=== PATIENT | female | born 1930 | race Caucasian/White ===

== ENCOUNTER 2018-01-09 09:28 | Inpatient (IN) ==
--- NOTE | 2018-01-09 09:40 | Emergency Department Note ---
Disposition Clinical Impression: Knee arthropathy UTI (urinary tract infection) Qualifiers: Urinary tract infection type: acute cystitis Hematuria presence: with hematuria Qualified Code(s): N30.01 - Acute cystitis with hematuria Disposition: Admitted As Inpatient Condition: Fair Time of Disposition: 12:10 General Adult HPI - General Stated complaint: fall Time Seen by Provider: 01/09/18 09:37 Nursing Notes Reviewed: Yes Vital Signs Reviewed: Yes - History of Present Illness HPI Narrative: Patient presents today with CC of: fall Patient describes issue began around 3 PM yesterday when she fell down because her walker got caught. She fell forward hitting her knee and has had pain since that time as well as slight tenderness extends up the leg towards the hip. She has not been able to bear weight. Family lifted her up so that she could sleep in a chair but she has not been able to bear weight very well and she normally bears weight with a walker. She recently has started having some burning with urination and she has a history of urinary tract infections. Pain is in the left knee it Sharp worse with movement better with rest patient denies any nausea or vomiting. She has been eating normally she had no loss of consciousness that she went down she bumped her left cheek. She is not having any pain denies any weakness or paresthesias. She is not on any blood thinners has no vision changes or tenderness of the face or head patient denies chest pain shortness of breath or abdominal pain. Patient states she took her blood pressure medicine shortly prior to coming here. She denies any headache. Was noted that her blood pressure was high on arrival. - Related Data Home Medications Medication Instructions Recorded Confirmed Carvedilol [Coreg] 6.25 mg PO BID 12/21/16 01/09/18 Isosorbide MONOnitrate (24 HR) 30 mg PO DAILY 12/21/16 01/09/18 [Imdur] Furosemide [Lasix] 20 mg PO DAILY 01/09/18 01/09/18 Allergies Allergy/AdvReac Type Severity Reaction Status Date / Time Sulfa (Sulfonamide Allergy Rash Verified 05/28/16 15:13 Antibiotics) Penicillins AdvReac Numbness Verified 05/28/16 15:13 All systems ED: reviewed and negative except as stated. Review of Systems: As Per HPI Past Medical History - Past Medical History Medical history: Reports: CHF, hypertension, myocardial infarction, other Psychiatric history: Reports: no psych history PATIENT CARRIER history: Reports: no PATIENT CARRIER history - Social History Smoking Status: Former smoker Smokeless Tobacco Status: No Alcohol use: Reports: none Drug use: Reports: none Physical Exam ROS: At least 10 systems reviewed with patient or surrogate during physical exam and are otherwise negative. I have reviewed initial and available nurse's notes for the patient. The patient 's medications, allergies, and medical history was reviewed. Family, Social & Surg histories were reviewed and are not relevant except as noted above in the history of present illness, or below in the respective specific section. I have reviewed and agree with all vital signs synchronously available in EMR at the time of this dictation. Times documented are the time of computer entry, are not necessarily the time the event occurred. Physical EXAM: General ~ Constitutional: Conscious & cooperative , generally healthy appearance ABC's intact and primary survey completed Secondary survey below Head: NCAT , no scalp tenderness or lesions , no step off or gross evidence of skull abnormality / trauma, no cifuentes sign, no raccoon's eyes no hemotympanum. Eyes: Sclera white , conjunctiva clear , PERRL, non-icteric, dilated pupil from previous surgery per family report ENT : L Tympanic membrane normal color and landmarks R Tympanic membrane normal color and landmarks Canals are clear without significant drainage , no obstruction or vesicles , pinna and tragus non tender Nose with pink nasal mucosa , nares patent, non tender without bleeding Mouth - mucous membrane moist , pink , no lesions , no trismus Neck - no masses , supple , no cervical spinous process tenderness Pharynx - no exudate , no petechia or obvious lesions , no airway obstruction or stridor Hematologic ~ Lymphatic ~ Immunologic: Lymphadenopathy normal , no petechia , Skin color, nails and pulses unremarkable. Heart ~ Chest: Reg rate , nml Rhythm , nl S1/S2 , no MRG Lungs: Breath sounds equal , clear to auscultation bilaterally , no wheezing, no rales or rhonchi , no CVA tenderness Gastrointestinal ~ Abd: Soft & suprapubic tenderness very slight tender , BS + in 4 quads , No HSM or masses , no peritoneal signs GenitoUrinary: Deferred Musculoskeletal ~ Back ~ Extremities: Warm and w/o clubbing , cyanosis , or edema. No point tenderness , good ROM of major joints except the left knee where she does have swelling and tenderness over the knee joint - significant pain with ROM testing and therefore limited ROM. Pain extends up the left lower extremity to hip. Patient has some pain with internal and external rotation. No pain or tenderness pelvis. Patient has healing wound lateral aspect of her right lower extremity that she is in chronic wound care for. Neurologic: Cranial nerves grossly intact, good muscle strength , attention good , cooperative , Alert and oriented x4 GCS = 15, poor hearing, not ambulatory 2nd to knee pain Psychiatric: calm , Insight and mood appropriate , Skin: No rashes , good skin turgor , cap refill 2-3 seconds , warm and dry Course - Reevaluation(s) Reevaluation #1: I discussed patient detail with Dr. Crane who agreed to admit the patient to the hospital. Patient is currently nonambulatory and lives alone. She also has been having urinary symptoms and has urinalysis consistent with urinary tract infection. She will be treated with antibiotics and then admitted to the hospital for physical therapy and further evaluation per Dr. Crane. Time: 12:10 Vital Signs Temperature 98.2 F 01/09/18 09:37 Pulse Rate 68 01/09/18 09:37 Respiratory Rate 16 01/09/18 09:37 Blood Pressure 215/89 01/09/18 09:37 O2 Sat by Pulse Oximetry 95 01/09/18 09:37 Temperature 98.8 F 01/10/18 05:15 Pulse Rate 67 01/10/18 05:15 Respiratory Rate 16 01/10/18 05:15 Blood Pressure 176/75 01/10/18 05:15 O2 Sat by Pulse Oximetry 92 01/10/18 05:15 Oxygen Delivery Oxygen Delivery Room Air Medical Decision Making - MDM Narrative Medical decision making narrative: MDM: History and physical exam is consistent with - urinary tract infection, knee osteoarthritis DDx included multiple etiologies for the symptoms such as - ureterolithiasis, diverticulitis, adhesions, bowel obstruction, mesenteric ischemia, AAA, dissection, UTI, sepsis. XRAYS: Hip femur and pelvis shows no fracture dislocation. Severe ostial arthritis of the left knee Critical Care: None Condition and evaluation here was discussed in detail was discussed with Dr. Crane who agreed to admit the patient for observation and physical therapy to rehabilitate the knee also treatment of her urinary tract infection. Lab work was ordered and drawn here in the emergency department but was pending at the time of admission. - Lab Data Result diagrams: 01/09/18 12:15 01/09/18 12:15 Lab Results 01/09/18 01/09/18 01/09/18 Range/Units 11:30 12:15 12:15 WBC 9.0 (4.3-11.1) K/mcL RBC 4.28 (3.82-4.97) M/mcL Hgb 12.3 (11.5-15.4) g/dL Hct 38.3 (35.3-44.9) % MCV 89.5 (83.0-100.0) fL MCH 28.7 (28.0-33.3) pg MCHC 32.1 (31.6-35.5) g/dL RDW 13.2 (11.5-14.5) % Plt Count 239 (140-400) K/mcL MPV 10.9 (9.4-12.4) fL Immature Gran % 0.3 (0-4) % Seg Neutrophils % 63.1 % Lymphocytes % 24.4 % Monocytes % 11.0 % Eosinophils % 0.9 % Basophils % 0.3 % Neutrophils # 5.7 (1.6-8.9) K/mcL Lymphocytes # 2.2 (0.6-4.6) K/mcL Monocytes # 1.0 (0.0-1.3) K/mcL Eosinophils # 0.1 (0.0-0.6) K/mcL Basophils # 0.0 (0.0-0.2) K/mcL Sodium 138 (136-145) mEq/L Potassium 4.4 (3.5-5.1) mEq/L Chloride 105 (98-107) mEq/L Carbon Dioxide 27 (23-29) mEq/L BUN 28 H (8-23) mg/dL Creatinine 1.60 H (0.60-1.20) mg/dL Est GFR ( Amer) 37 L (> 60) Est GFR (Non-Af Amer) 30 L (> 60) BUN/Creatinine Ratio 18 (6-26) Glucose 114 H (70-105) mg/dL Calculated Osmolality 292 (280-300) Calcium 9.3 (8.6-10.3) mg/dL Urine Color Yellow (Yellow) Urine Clarity Cloudy A (Clear) Urine pH 7.0 (5.0-8.0) pH Units Ur Specific [place] 1.020 (1.010-1.025) Urine Protein 100 H (Neg-Trace) mg/dL Urine Glucose (UA) Normal (Normal) mg/dL Urine Ketones Negative (Negative) mg/dL Urine Blood Moderate H (Negative) Urine Nitrite Negative (Negative) Urine Bilirubin Negative (Negative) Urine Urobilinogen Normal (Normal) mg/dL Ur Leukocyte Esterase Large H (Negative) Urine Microscopic RBC 5-15 H (0-3) per hpf Urine Microscopic WBC TNTC H (0-3) per hpf Ur Squamous Epith Cells Moderate H (None-Few) per lpf Urine Bacteria Few (None-Few) per hpf Ur Culture Indicated? YES A (NO)
[2018-01-09 11:36] LABS: Bilirubin,Urine Negative (Negative); Blood,Urine Moderate (Negative); Clarity,Urine Cloudy (Clear); Color,Urine Yellow (Yellow); Glucose,Urine (UA) Normal (Normal); Ketones,Urine Negative (Negative); Leukocyte Esterase,Urine Large (Negative); Nitrite,Urine Negative (Negative); Protein,Urine 100 mg/dL (Neg-Trace); Urobilinogen,Urine Normal (Normal)
[2018-01-09 11:57] LABS: Bacteria,Urine Few per hpf (None-Few); Squamous Epithelial Cell,Urine Moderate per lpf (None-Few); WBC,Urine TNTC per hpf (0-3)
[2018-01-09 12:20] LABS: Basophils % 0.3 %; Eosinophils # 0.1 K/mcL (0.0-0.6); Eosinophils % 0.9 %; Hematocrit 38.3 % (35.3-44.9); Hemoglobin 12.3 g/dL (11.5-15.4); Immature Granulocytes % 0.3 % (0-4); Lymphocytes # 2.2 K/mcL (0.6-4.6); Lymphocytes % 24.4 %; Mean Corpuscular HGB Conc 32.1 g/dL (31.6-35.5); Mean Corpuscular Hemoglobin 28.7 pg (28.0-33.3); Mean Corpuscular Volume 89.5 fL (83.0-100.0); Mean Platelet Volume 10.9 fL (9.4-12.4); Neutrophils # 5.7 K/mcL (1.6-8.9); Platelet Count 239 K/mcL (140-400); Red Blood Count 4.28 M/mcL (3.82-4.97); Red Cell Distribution Width 13.2 % (11.5-14.5); Segmented Neutrophils % 63.1 %
[2018-01-09] MEDS ORDERED: cefTRIAXone 1,000 MG in Water for inj. (sterile) 20 ML 10 ML IVP ONE (12:20)
[2018-01-09 12:38] LABS: Calcium 9.3 mg/dL (8.6-10.3); Potassium 4.4 mEq/L (3.5-5.1)
[2018-01-09] MEDS ORDERED: Acetaminophen 325 MG TABLET PO PRN ×2 (12:58→14:06)
[2018-01-09] MEDS ORDERED: Naloxone 0.4 MG/ML INJ IVP PRN ×2 (12:58→14:06)
[2018-01-09] MEDS: traMADol 50 MG TABLET PO PRN (20:33)
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
[2018-01-09] MEDS ORDERED: Albuterol 2.5 MG/3 ML NEBULIZER IH PRN (21:20)
[2018-01-10] MEDS: *HR* Enoxaparin 30 MG/0.3 ML SYRINGE SQ SCH (05:07)
[2018-01-10 07:16] LABS: Basophils # 0.1 K/mcL (0.0-0.2); Basophils % 0.6 %; Eosinophils # 0.1 K/mcL (0.0-0.6); Hematocrit 38.1 % (35.3-44.9); Hemoglobin 12.3 g/dL (11.5-15.4); Immature Granulocytes % 0.5 % (0-4); Lymphocytes # 2.3 K/mcL (0.6-4.6); Mean Corpuscular HGB Conc 32.3 g/dL (31.6-35.5); Mean Corpuscular Volume 89.9 fL (83.0-100.0); Monocytes # 1.1 K/mcL (0.0-1.3); Monocytes % 12.2 %; Neutrophils # 5.3 K/mcL (1.6-8.9); Platelet Count 232 K/mcL (140-400); Red Blood Count 4.24 M/mcL (3.82-4.97); Red Cell Distribution Width 13.4 % (11.5-14.5); Segmented Neutrophils % 59.7 %
[2018-01-10 07:36] LABS: Calcium 9.1 mg/dL (8.6-10.3); Potassium 4.4 mEq/L (3.5-5.1)
[2018-01-10] MEDS: traMADol 50 MG TABLET PO PRN (08:27)
[2018-01-10] MEDS: Furosemide 20 MG TABLET PO SCH (08:28)
[2018-01-10] MEDS: Isosorbide MONOnitrate (24 HR) 30 MG TAB.ER.24H PO SCH (08:28)
[2018-01-10] MEDS: cefTRIAXone 1,000 MG in Water for inj. (sterile) 20 ML 10 ML IVP SCH (08:28)
--- NOTE | 2018-01-10 09:16 | Internal Med Progress Note ---
Date of Encounter: 01/10/18 Time of Encounter: 09:15 - Assessment and plan (1) UTI (urinary tract infection) Current Visit: Yes Status: Acute Assessment and plan: Being treated with Rocephin for urinary tract infection. Culture is pending. No fever. The UTI is likely the source of her weakness that caused her fall. Qualifiers: Urinary tract infection type: acute cystitis Hematuria presence: with hematuria Qualified Code(s): N30.01 - Acute cystitis with hematuria (2) Falling episodes Current Visit: Yes Status: Acute Assessment and plan: Currently she is so much pain in her knees she is not able to bend her knees nor even try to stand or walk at this time. Physical therapy and Dr. Bearden are consulted. I talked to the patient about the probable need of ECF for 24- hour skilled care and physical therapy. She is going to talk to her daughter Nicole. I left 2 phone messages for her last night and I will try to reach her again today. Likely the falling episode was related to weakness, arthritis, and her acute urinary tract infection. (3) Bilateral knee pain Current Visit: Yes Status: Acute Assessment and plan: Severe bilateral knee pain. Osteoarthritis is noted. Physical therapy and physical medicine consultations ordered. Likely she will need extensive therapy , possibly orthopedic consultation, and assistance with ADLs. Qualifiers: Chronicity: acute Qualified Code(s): M25.561 - Pain in right knee; M25.562 - Pain in left knee (4) Chronic kidney disease Current Visit: Yes Status: Chronic Assessment and plan: History of chronic kidney disease. Her creatinine is fairly stable. We will follow. Qualifiers: Chronic kidney disease stage: stage 3 (moderate) Qualified Code(s): N18.3 - Chronic kidney disease, stage 3 (moderate) (5) Hypertension Current Visit: Yes Status: Chronic Assessment and plan: Blood pressure is still elevated. We will monitor today and adjust medications if needed. Qualifiers: Hypertension type: essential hypertension Qualified Code(s): I10 - Essential (primary) hypertension (6) COPD (chronic obstructive pulmonary disease) Current Visit: Yes Status: Chronic Assessment and plan: History of COPD from previous tobacco use. No wheezing. Nebulizer and MDI order for when necessary use. Currently no acute symptoms Qualifiers: COPD type: emphysema Emphysema type: unspecified Qualified Code(s): J43.9 - Emphysema, unspecified (7) Pulmonary congestion Current Visit: Yes Status: Acute Assessment and plan: She had crackles in the right mid and lower lung cain. However, chest x-ray is normal. She has no pulmonary symptoms. This may be atelectatic-type findings from her COPD. Unlikely for CHF or pneumonia. She is currently on Rocephin for UTI. Chronically she does not have congestive heart failure problems. She may have had diastolic congestive heart failure when she had pneumonia and A. fib with RVR in the remote past. Her last echocardiogram showed 65% ejection fraction. She takes Lasix, but this is typically for her lower extremity edema and hypertension. (8) DVT prophylaxis Current Visit: Yes Status: Acute - Subjective Interval history: Patient is tearful this morning. She says she has gotten too old and nothing works. She does not want to be a burden to her daughter and she is not sure how she is going to be able to get around since she is not able to walk. Denies any cardiac type chest pain or palpitations. Denies any pulmonary symptoms. She ate breakfast and no abdominal complaints. Her biggest concern is that she cannot move her lower extremities and she has severe pain in her knees and the wrap on her right lower extremity is painful and tight. - Constitutional Vitals: Temp Pulse Resp BP Pulse Ox 98.5 F 84 16 129/63 98 01/10/18 07:48 01/10/18 09:08 01/10/18 07:48 01/10/18 09:08 01/10/18 07:48 General appearance: Present: mild distress, A&O X 3, pleasant, answers questions appropriately Exam: She is tearful this morning. - Respiratory Respiratory exam: Present: decreased breath sounds Additional comments: Right middle and lower lung cain have subtle crackles. Very diminished breath sounds in left base. No respiratory distress. Sounds better today than yesterday - Cardiovascular Cardiovascular exam: Present: RRR, +S1, +S2, systolic murmur (1-2 /6 systolic murmur at the left sternal border) - GI/Abdominal GI/Abdominal exam: Present: soft. Absent: mass, tenderness - Extremities Exam Additional comments: Patient does not tolerate virtually any movement of her knees bilaterally. She cannot fully extend. She can flex about 20 degrees on the left. She did not allow me to touch the right knee and she felt it was too painful. The wrap is still on the right lower extremity. No bruising is noted. Chronic arthritic changes in both knees, right is worse than the left. - Psychiatric Additional comments: This morning she is tearful. She laments that she is getting old and cannot do anything. She is worried that she is a burden to her daughter who cannot be available because she is working. Internal Medicine: Result - Labs CBC & Chem 7: 01/10/18 06:53 01/10/18 06:53 Labs: Short CBC 01/10/18 Range/Units 06:53 WBC 8.9 (4.3-11.1) K/mcL Hgb 12.3 (11.5-15.4) g/dL Hct 38.1 (35.3-44.9) % Plt Count 232 (140-400) K/mcL Neutrophils # 5.3 (1.6-8.9) K/mcL BMP 01/10/18 06:53 Sodium 139 Potassium 4.4 Chloride 105 Carbon Dioxide 28 BUN 27 H Creatinine 1.63 H Glucose 100 Calcium 9.1 Labs have been reviewed. Chronic kidney disease and stable. - Diagnostic Studies Chest x-ray Additional comments: Chest x-ray did not show any acute changes. Consult Discharge Plan - Plan Referrals: David Cabrera MD [Primary Care Provider] -
[2018-01-11] MEDS: traMADol 50 MG TABLET PO PRN ×4 (00:04→19:51)
[2018-01-11] MEDS: *HR* Enoxaparin 30 MG/0.3 ML SYRINGE SQ SCH (06:02)
[2018-01-11] MEDS: cefTRIAXone 1,000 MG in Water for inj. (sterile) 20 ML 10 ML IVP SCH (08:39)
[2018-01-11] MEDS: Furosemide 20 MG TABLET PO SCH (08:39)
[2018-01-11] MEDS: Isosorbide MONOnitrate (24 HR) 30 MG TAB.ER.24H PO SCH (08:39)
--- NOTE | 2018-01-11 13:44 | Internal Med Progress Note ---
Date of Encounter: 01/11/18 Time of Encounter: 13:40 - Assessment and plan (1) UTI (urinary tract infection) Current Visit: Yes Status: Acute Assessment and plan: The preliminary urine culture currently shows no growth. We will continue the Rocephin until the final culture is back. Qualifiers: Urinary tract infection type: acute cystitis Hematuria presence: with hematuria Qualified Code(s): N30.01 - Acute cystitis with hematuria (2) Falling episodes Current Visit: Yes Status: Acute Assessment and plan: She is having severe pain in lower extremities the point where she can barely be moved in bed, she cannot sit up at the edge of the bed, she cannot stand. It is virtually impossible to do a full lower extremity exam with active and passive range of motion because of severe pain since the falling episode. No fractures were seen. No bruising or skin changes noted. This is a sufficient an acute change in her ADLs that she requires 2 person assistance. She cannot be cared for at home. I have recommended extended care facility placement. With her multiple medical problems, comorbidities and orthopedic issues is my estimation that the patient qualifies for inpatient stay. (3) Bilateral knee pain Current Visit: Yes Status: Acute Assessment and plan: See above Qualifiers: Chronicity: acute Qualified Code(s): M25.561 - Pain in right knee; M25.562 - Pain in left knee (4) Chronic kidney disease Current Visit: Yes Status: Chronic Assessment and plan: Chronic kidney disease is stable. We will continue to follow. Qualifiers: Chronic kidney disease stage: stage 3 (moderate) Qualified Code(s): N18.3 - Chronic kidney disease, stage 3 (moderate) (5) Hypertension Current Visit: Yes Status: Chronic Assessment and plan: Blood pressure is mildly elevated. At this point we will continue to monitor. Qualifiers: Hypertension type: essential hypertension Qualified Code(s): I10 - Essential (primary) hypertension (6) COPD (chronic obstructive pulmonary disease) Current Visit: Yes Status: Chronic Assessment and plan: Her lungs are diminished but clear. She is not requiring any pulmonary intervention currently. The crackles in the right middle and lower lung field are cleared. Qualifiers: COPD type: emphysema Emphysema type: unspecified Qualified Code(s): J43.9 - Emphysema, unspecified (7) Pulmonary congestion Current Visit: Yes Status: Resolved Assessment and plan: The congestion in the right mid and lower lung cain have cleared now. Chest x -ray showed no acute changes. (8) DVT prophylaxis Current Visit: Yes Status: Acute - Subjective Interval history: Patient is denying any shortness of breath, cough, cardiac type chest pain. No GI symptoms. She complains of her lower extremity is being very painful. There are times when they cannot be touched. Other times she has some active and passive range of motion. Therapy was unable to work with her as she had too much pain with range of motion exercises. - Constitutional Vitals: Temp Pulse Resp BP Pulse Ox 98.4 F 59 16 155/67 91 01/11/18 12:00 01/11/18 12:00 01/11/18 12:00 01/11/18 12:01/11/18 12:00 General appearance: Present: A&O X 3, pleasant, answers questions appropriately (But is hard of hearing) - Respiratory Respiratory exam: Present: decreased breath sounds Additional comments: The crackles I heard in the right mid and lower lung field have now cleared. - Cardiovascular Cardiovascular exam: Present: RRR, +S1, +S2. Absent: systolic murmur - GI/Abdominal GI/Abdominal exam: Present: soft. Absent: mass, tenderness - Extremities Exam Additional comments: She is lying supine with her knees slightly flexed with a pillow under her knees. I can passively move her left lower leg from 10 degrees of flexion to about 30 degrees today. The right knee I can move from 10 degrees flexion to approximately 20 degrees of flexion. Neither one can I fully extend. There is no calf tenderness. There is no edema or swelling or bruising noted in lower extremities. Previously her right foot was so tender that no one could touch it , now I can palpate it and she has normal active dorsiflexion and plantar flexion while in bed. She is unable to sit up, she is unable to stand, she is unable to have full range of motion of the knees or hips because of severe pain. - Psychiatric Additional comments: She is alert and appropriate. We had a normal conversation appropriate for her age. We talked about the need for extended care facility placement. The limitation is her being hard of hearing Internal Medicine: Result - Labs CBC & Chem 7: 01/10/18 06:53 01/10/18 06:53 Consult Discharge Plan - Plan Referrals: David Cabrera MD [Primary Care Provider] -
[2018-01-12] MEDS: *HR* Enoxaparin 30 MG/0.3 ML SYRINGE SQ SCH (05:38)
--- NOTE | 2018-01-12 07:05 | Discharge Summary ---
Date of Encounter: 01/12/18 Time of Encounter: 07:00 - Discharge Diagnosis (1) Fall as cause of accidental injury at home as place of occurrence Priority: Primary Status: Acute Comments: Patient fell at home and had significant injury to her lower extremities to the point where she is unable to walk. She needs 2 person assistance for transfers. She has pain with motion of her knees. X-rays were negative for fracture. No bruising or open skin lesions noted. Being unable to sit up appropriately, stand or walk she was admitted to the hospital. Having not showing significant improvement she will need ECF placement for therapies and treatment with the plan to eventually return to home if able to resume those ADLs. Qualifiers: Encounter type: initial encounter Qualified Code(s): W19.XXXA - Unspecified fall, initial encounter; Y92.009 - Unspecified place in unspecified non-institutional (private) residence as the place of occurrence of the external cause (2) Bilateral knee pain Priority: Secondary Status: Acute Comments: She has severe bilateral knee pain. She is unable to fully extend the knees. I am able to get about 20 degrees of flexion. Last night Lidoderm patches were placed on her knees and this seems to give her some relief of pain. However she did develop confusion and some agitation last night and this morning. I doubt it is related to the patch but they will be discontinued and see if her confusion clears. I suspect it has been some sundowning. Qualifiers: Chronicity: acute Qualified Code(s): M25.561 - Pain in right knee; M25.562 - Pain in left knee (3) Sundowning Priority: Secondary Status: Acute Comments: The nurses reported that last night patient started developing some confusion and agitation. She thought someone was in her house. This morning she still feels that someone had been staying at her home and she was upset that the hospital allowed that. I was able to redirect her. She know she is in the hospital. She knows who I am. She knows about [facility]. I doubt this is related to the Lidoderm patches placed last night but they will be discontinued and then see what happens. (4) UTI (urinary tract infection) Priority: Secondary Status: Ruled-out Comments: Initially on admission it appears she may have a UTI. Her urinalysis was abnormal. The final culture shows no growth of bacteria. Her Rocephin was discontinued. She does have a history of chronic intermittent dysuria and incontinence and I recommended that she see a urologist. Qualifiers: Urinary tract infection type: acute cystitis Hematuria presence: with hematuria Qualified Code(s): N30.01 - Acute cystitis with hematuria (5) Falling episodes Priority: Secondary Status: Acute (6) Chronic kidney disease Priority: Secondary Status: Chronic Comments: She has a history chronic kidney disease likely related to her long-standing hypertension. Her creatinine is stable in the 1.6 range. No other intervention was done regarding this at the present time. Qualifiers: Chronic kidney disease stage: stage 3 (moderate) Qualified Code(s): N18.3 - Chronic kidney disease, stage 3 (moderate) (7) Hypertension Priority: Secondary Status: Chronic Comments: Patient is a history of long-standing hypertension. Surprisingly this morning her blood pressure is elevated. This may be because of her agitation and confusion. We will give her morning medications early and monitor the blood pressure. She is not having any headache, change in vision, signs of CVA etc. She may need to have her medications adjusted if this continues Qualifiers: Hypertension type: essential hypertension Qualified Code(s): I10 - Essential (primary) hypertension (8) COPD (chronic obstructive pulmonary disease) Priority: Secondary Status: Chronic Comments: History chronic COPD. Her lung findings show decreased breath sounds and crackles in the right mid to lower lung field. Her chest x-ray is stable except for as emphysematous changes. At home on occasion she may need nebulizer or inhaler use. She has needed none at the hospital. Qualifiers: COPD type: emphysema Emphysema type: unspecified Qualified Code(s): J43.9 - Emphysema, unspecified (9) Pulmonary congestion Priority: Secondary Status: Resolved Comments: She had increased congestion crackles in right middle lower lung field. Chest x -ray was normal. This is partially cleared now. Likely this is secondary to her chronic emphysematous changes. (10) DVT prophylaxis Priority: Secondary Status: Resolved Comments: During her hospital stay she was given Lovenox for DVT prophylaxis. This will be discontinued on discharge. Hospital course: Ms. Solis is a 87 year old female who lives alone in her home independently was admitted after having a falling episode and inability to walk because of severe pain in lower extremities. She was evaluated in the ER was found to have what appear to be a UTI at the time. It is felt that that contributed to her falling episode. She had pain and immobility of her knees and not able to be standing and was unable to be discharged to home. Physical therapy was initiated but she did not make any progress at this time. Being unable to stand independently or even sit up independently is felt that she would benefit from ECF placement for physical therapy and time to recuperate. Please see the above diagnoses. On morning of discharge it is reported that she had some sundowning-type symptoms tonight with some confusion and agitation. Some residual is noted this morning. Is unlikely related to the Lidoderm patches on her knees but these will be discontinued. This will need to be monitored in the ECF as well. Discharge discussed with: family - Time Spent with Patient Total time spent providing and/or coordinating discharge services: - Discharge Medications Home Medications: Carvedilol [Coreg] 6.25 mg PO BID 12/21/16 [History] Isosorbide MONOnitrate (24 HR) [Imdur] 30 mg PO DAILY 12/21/16 [History] Furosemide [Lasix] 20 mg PO DAILY 01/09/18 [History] Acetaminophen [Tylenol] 650 mg PO Q6HR PRN tablet 01/12/18 [Rx] Albuterol Neb [Proventil Neb] 2.5 mg IH [id number] PRN inhsol 01/12/18 [Rx] Albuterol Sulfate [Albuterol Inhaler] 2 puff IH [id number] PRN inhaler 01/12/18 [ Rx] Allergies/Adverse Reactions: 3 Allergy/AdvReac Type Severity Reaction Status Date / Time Sulfa (Sulfonamide Allergy Rash Verified 05/28/16 15:13 Antibiotics) Penicillins AdvReac Numbness Verified 05/28/16 15:13 Date of admission: 01/09/18 21:23 Primary care physician: David Cabrera MD Consults: 01/09/18 21:36 Consult to Physician [CONS] Routine Consulting Provider: Radhames Bearden Reason for Consult: recent falling episode. Bilateral knee pain and unable to walk Call Completed: No 01/09/18 21:49 Consult to Wound Care [CONS] Routine Reason for Consult: Right Leg Sore Call Completed: Yes Discharging clinician: David Cabrera Anticipated date of discharge: 01/12/18 - Constitutional Vitals: Temp Pulse Resp BP Pulse Ox 98.7 F 83 15 181/83 89 01/12/18 04:00 01/12/18 04:00 01/12/18 04:00 01/12/18 04:00 01/12/18 04:00 General appearance: Present: A&O X 3, pleasant, answers questions appropriately (But is hard of hearing) Exam: But she relates that she was upset last night because someone allowed a couple to stay at her house without permission. She thought the hospital allow that. I cannot convince her that that was not real. Otherwise we had conversation regarding the penitentiary, she knows who I am, and is otherwise appropriate - Head Head exam: Present: atraumatic - Neck Neck exam general surgery: Absent: lymphadenopathy, tenderness, thyromegaly - Respiratory Respiratory exam: Present: decreased breath sounds Additional comments: Chronic decreased breath sounds. Faint atelectatic-type crackles in the right mid and lower lung field. - Cardiovascular Cardiovascular exam: Present: RRR, +S1, +S2. Absent: systolic murmur - GI/Abdominal GI/Abdominal exam: Present: soft. Absent: tenderness - Extremities Exam Extremities exam: Present: warm. Absent: calf tenderness, cyanotic, pedal edema Additional comments: She cannot fully extend either knee. They stay flexed at approximately 10 degrees. I am able to actively and passively flex her knee to about 30 degrees bilaterally. Chronic arthritic changes bilaterally, right is worse than left. No new effusion. No trauma. No redness. No calf tenderness. No ankle pain or foot tenderness. She has appropriate range of motion at the hips as tested in bed. However, there is no way that she can sit upright independently nor stand with even 2 person assistance because of pain and weakness. - Psychiatric Additional comments: She is a bit agitated this morning. She knows who I am, where she is, she knows about the penitentiary today. However she is convinced that someone stayed in her house last night. - Skin Skin exam: Absent: abrasion, excoriation, mottled, rash Additional comments: No skin tears or lesions noted. - Patient Status Disposition: Transfer SNF Condition: Good Functional capacity at discharge: bed bound Overall status at discharge: patient is not back to baseline - Discharge Instructions Follow Up With: David Cabrera MD [Primary Care Provider] - - Diet and Activity Activity: as per physical therapy, increase activity as tolerated Diet: low salt diet
[2018-01-12] MEDS: Furosemide 20 MG TABLET PO SCH (07:22)
[2018-01-12] MEDS: Isosorbide MONOnitrate (24 HR) 30 MG TAB.ER.24H PO SCH (07:22)
[2018-01-12 07:27] VITALS: BP 195/92
--- NOTE | 2018-01-12 07:37 | Physician Discharge Referral ---
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) Institutional Level of Care: Skilled - Diagnosis (1) Fall as cause of accidental injury at home as place of occurrence Priority: Primary Status: Acute (2) Bilateral knee pain Priority: Secondary Status: Acute (3) Sundowning Priority: Secondary Status: Acute (4) UTI (urinary tract infection) Priority: Secondary Status: Ruled-out (5) Falling episodes Priority: Secondary Status: Acute (6) Chronic kidney disease Priority: Secondary Status: Chronic (7) Hypertension Priority: Secondary Status: Chronic (8) COPD (chronic obstructive pulmonary disease) Priority: Secondary Status: Chronic (9) Pulmonary congestion Priority: Secondary Status: Resolved (10) DVT prophylaxis Priority: Secondary Status: Resolved - Transfer Medications Home Medications: Carvedilol [Coreg] 6.25 mg PO BID 12/21/16 [History] Isosorbide MONOnitrate (24 HR) [Imdur] 30 mg PO DAILY 12/21/16 [History] Furosemide [Lasix] 20 mg PO DAILY 01/09/18 [History] Acetaminophen [Tylenol] 650 mg PO Q6HR PRN tablet 01/12/18 [Rx] Albuterol Neb [Proventil Neb] 2.5 mg IH [id number] PRN inhsol 01/12/18 [Rx] Albuterol Sulfate [Albuterol Inhaler] 2 puff IH [id number] PRN inhaler 01/12/18 [ Rx] Allergies/Adverse Reactions: 3 Allergy/AdvReac Type Severity Reaction Status Date / Time Sulfa (Sulfonamide Allergy Rash Verified 05/28/16 15:13 Antibiotics) Penicillins AdvReac Numbness Verified 05/28/16 15:13 - Respiratory Orders Smoking Cessation: Smoking cessation has been advised. For more information, call the [place] Tobacco Quit Line at 1-893-HPFR-NOW. - Ancillary Orders May use pressure relief devices daily prn, May go on PAVEL w/family/respon republican w /meds at nurse discretion PRN, May consult with Dentist, Community Cultural Development Officer, Roll Scale Man PRN - Advance Directives Power of Decision Science Analyst: Yes (Daughter Nicole Hearn) Code Status: Full Code - Mobility Orders Bedrest - Rehabiliation Orders Rehab Potential: Fair Rehab Orders: ROM Exercises, Evaluation for Physical Therapy, Evaluation for Occupational Therapy - Treatments Skin tear care topically daily PRN per policy - Diet Orders No Added Salt (DARIUS) CERTIFICATION: I certify that the transfer of the above named patient to an Extended Care Facility is necessary for the continuing treatment of the diagnosis listed. The above information is true and accurate reflection of patient's current condition. Confidential - Redisclosure prohibited without a patient's written consent.
== END 2018-01-12 10:45 | DRG 690 ==
LOC: EMEROOGRE 09:28 → INPGRE 09:28
PROVIDERS: ADMIT Family Medicine; ATTEND Family Medicine